=== PATIENT | male | born 1970 | race Caucasian/White ===

== ENCOUNTER 2021-03-27 12:56 | Day surgery (SDC) | payer OTHER ==
[~2021-03-27] VITALS: Ht 180.3 cm; Wt 90.5 kg
[2021-03-27 13:38] VITALS: BP 146/86; PULSE 64; TEMP 97.4
[2021-03-27] MEDS ORDERED: SYNTHROID0.05 MG/TA PO (13:40)
[2021-03-27] MEDS ORDERED: LUNESTA3 MG PO (13:40)
[2021-03-27 14:37] VITALS: BP 109/75; PULSE 66; TEMP 97.1
--- NOTE | 2021-03-27 14:37 | NUR ---
The patient arrived back to [facility] from the operating room at this time. The patient appears alert and oriented and denies any pain or nausea at this time. The patient denies wanting anything to eat or drink at this time. Post operative vital signs were started at this time. Call light is within reach. Will continue to monitor the patient.
[2021-03-27 14:52] VITALS: BP 115/76; PULSE 54
--- NOTE | 2021-03-27 14:52 | NUR ---
The patient agrees to try a diet pepsi at this time. The patient continues to deny any pain or nausea. Call light is within reach. Vital signs appear stable. Will continue to montior the patient.
[2021-03-27 15:07] VITALS: BP 135/74; PULSE 58
--- NOTE | 2021-03-27 15:07 | NUR ---
The patient's was brought back to be at his bedside. The patient appears to be tolerating the pop well. Vital signs appear stable. Will continue to monitor the patient.
--- NOTE | 2021-03-27 15:20 | NUR ---
Discharge instructions were reviewed with the patient and his at this time. They both verbalized understanding and have no questions for the nurse at this time. The patient's IV to his right hand was removed and a pressure dressing was applied to the site. The nurse instructed the patient to get dressed and notify the staff when he is ready to be escorted out.
[2021-03-27 15:22] VITALS: BP 143/80; PULSE 51
--- NOTE | 2021-03-27 15:30 | NUR ---
The patient was escorted out via wheelchair to a private vehicle by KATHIA Anderson. The patient's belongings and discharge paperwork were sent with him. The patient's is present to drive him home.
== END 2021-03-27 15:30 | disposition home or self-care (01) ==
LOC: SDCO 12:56 → EDSTATUS 12:56 → SDCO 15:30
DX: N20.1 Calculus of ureter (principal); U07.1 COVID-19; E06.3 Autoimmune thyroiditis; E03.9 Hypothyroidism, unspecified; Z46.6 Encounter for fitting and adjustment of urinary device; Z79.899 Other long term (current) drug therapy; Z79.890 Hormone replacement therapy
CPT/HCPCS: J0690; J2704; J3010; J7120